=== PATIENT | male | born 1980 | race African-American/Black ===

== ENCOUNTER 2021-05-11 04:58 | Emergency (ER) | payer OTHER, SELFPAY ==
[2021-05-12] MEDS ORDERED: THIA100TA PO (13:37)
[2021-05-12] MEDS ORDERED: ASPI-551 PO (13:37)
[2021-05-12] MEDS ORDERED: FOLI1TAB11 PO (13:37)
[2021-05-12] MEDS ORDERED: PERCOCET PO (13:51)
== END 2021-05-11 05:13 | disposition left against medical advice (07) ==
LOC: M ED 04:58
DX: Z53.29 Procedure and treatment not carried out because of patient's decision for other reasons (principal)

== ENCOUNTER 2021-05-11 06:14 | Inpatient (IN) | payer MEDICAID, OTHER ==
[~2021-05-11] VITALS: Ht 175.3 cm; Wt 119.1 kg
[2021-05-11 07:38] LABS: AMPHETAMINES LEVEL URINE NEGATIVE (NEGATIVE); BARBITURATES URINE NEGATIVE (NEGATIVE); BENZODIAZEPINES URINE NEGATIVE (NEGATIVE); CANNABINOIDS URINE POSITIVE (NEGATIVE); COCAINE METABOLITE URINE POSITIVE (NEGATIVE); METHADONE URINE NEGATIVE (NEGATIVE); OPIATES URINE NEGATIVE (NEGATIVE); PHENCYCLIDINE URINE NEGATIVE (NEGATIVE)
[2021-05-11 07:39] LABS: RSV AMPLIFICATION NEGATIVE (NEGATIVE)
[2021-05-11 11:05] LABS: HEMATOCRIT 41.5 % (42.0-52.0); HEMOGLOBIN 13.6 g/dl (13.5-17.5); MEAN CORPUSCULAR HEMOGLOBIN 27.8 pg (27.0-33.0); MEAN CORPUSCULAR HGB CONC 32.8 g/dl (32.0-36.5); MEAN CORPUSCULAR VOLUME 84.7 fl (80.0-96.0); PLATELET COUNT, AUTOMATED 289 10^3/uL (150-450); WHITE BLOOD COUNT 17.3 10^3/uL (4.0-10.0)
[2021-05-11 11:35] LABS: ACETAMINOPHEN LEVEL < 2.0 UG/ML (10.0-30.0); ALBUMIN 3.9 GM/DL (3.2-5.2); ALT/SGPT 22 U/L (12-78); BILIRUBIN,DIRECT 0.1 MG/DL (0.0-0.2); BILIRUBIN,TOTAL 0.4 MG/DL (0.2-1.0); BLOOD UREA NITROGEN 9 MG/DL (7-18); CALCIUM LEVEL 8.4 MG/DL (8.5-10.1); CARBON DIOXIDE LEVEL 28 MEQ/L (21-32); CHLORIDE LEVEL 114 MEQ/L (98-107); CREATININE FOR GFR 0.86 MG/DL (0.70-1.30); ETHYL ALCOHOL (ETHANOL) 0.162 % (0.000-0.010); GLOMERULAR FILTRATION RATE > 60.0 (>60); GLUCOSE, FASTING 88 MG/DL (70-100); POTASSIUM SERUM 3.8 MEQ/L (3.5-5.1); SALICYLATE LEVEL 3.4 MG/DL (5.0-30.0); SODIUM LEVEL 145 MEQ/L (136-145); THYROID STIMULATING HORMONE 0.396 uIU/ML (0.358-3.740); TOTAL PROTEIN 7.4 GM/DL (6.4-8.2)
[2021-05-11] MEDS ORDERED: MORPHINE 10 MG/ML 1ML VIAL (J2270) IM ONE (15:10)
[2021-05-11] MEDS ORDERED: MORPHINE 4 MG/ML 1ML VIAL/SYRINGE (J2270) IM ONE (15:10)
[2021-05-11] MEDS ORDERED: HOME MED LIST COMPLETE! XX SCH (16:20)
[2021-05-11] MEDS ORDERED: LORazepam 2 MG TAB PO PRN (16:35)
[2021-05-11] MEDS ORDERED: MORPHINE 2 MG/ML 1ML VIAL (J2270) IV PRN ×2 (16:35)
[2021-05-11] MEDS ORDERED: oxyCODONE 5MG TAB PO ONE (16:50)
[2021-05-11 21:30] VITALS: BP 139/87
[2021-05-11] MEDS: THIAMINE 100 MG TAB PO SCH (21:37)
[2021-05-11] MEDS: MORPHINE 4 MG/ML 1ML VIAL/SYRINGE (J2270) IV PRN (21:38)
[2021-05-11 22:02] VITALS: BP 134/85
[2021-05-11] MEDS ORDERED: ONDANSETRON 4MG/2ML VIAL IV PRN (23:10)
[2021-05-12] MEDS: MORPHINE 4 MG/ML 1ML VIAL/SYRINGE (J2270) IV PRN ×2 (01:46→11:35)
[2021-05-12 06:00] VITALS: BP 134/89
[2021-05-12] MEDS ORDERED: METOCLOPRAMIDE INJ 10MG/2ML VIAL (J2765 PER 1) As Ordered ONE (07:50)
[2021-05-12] MEDS ORDERED: LIDOCAINE 2% 100MG/5ML SDV (FOR ANES.) As Ordered ONE (07:50)
[2021-05-12] MEDS ORDERED: ACETAMINOPHEN 1000MG 100ML IV BTL (OFIRMEV) (J0131 PER 10MG) As Ordered ONE (07:50)
[2021-05-12] MEDS ORDERED: fentaNYL 100 MCG/2 ML INJECTION As Ordered ONE ×2 (07:50→10:49)
[2021-05-12] MEDS ORDERED: MIDAZOLAM INJ 2MG/2ML VIAL (J2250 PER 1MG) As Ordered ONE (07:50)
[2021-05-12] MEDS ORDERED: ONDANSETRON 4MG/2ML VIAL As Ordered ONE (07:50)
[2021-05-12] MEDS ORDERED: propofoL 200 MG/20 ML VIAL As Ordered ONE (07:50)
[2021-05-12] MEDS ORDERED: KETOROLAC 60MG 2ML VIAL As Ordered ONE (07:50)
[2021-05-12] MEDS ORDERED: BUPIVACAINE HCL 0.25% 30ML VIAL As Ordered ONE (08:17)
[2021-05-12 08:24] LABS: ALBUMIN 3.8 GM/DL (3.2-5.2); ALT/SGPT 22 U/L (12-78); BILIRUBIN,TOTAL 2.1 MG/DL (0.2-1.0); BLOOD UREA NITROGEN 9 MG/DL (7-18); CARBON DIOXIDE LEVEL 28 MEQ/L (21-32); CHLORIDE LEVEL 106 MEQ/L (98-107); CREATININE FOR GFR 0.82 MG/DL (0.70-1.30); GLOMERULAR FILTRATION RATE > 60.0 (>60); GLUCOSE, FASTING 103 MG/DL (70-100); MAGNESIUM LEVEL 2.1 MG/DL (1.8-2.4); PHOSPHORUS LEVEL 2.8 MG/DL (2.5-4.9); POTASSIUM SERUM 3.8 MEQ/L (3.5-5.1); SODIUM LEVEL 140 MEQ/L (136-145); TOTAL PROTEIN 7.1 GM/DL (6.4-8.2)
[2021-05-12] MEDS ORDERED: ceFAZolin 2 GM/D5W 50 ML IV BAG (J0690 PER 500MG) As Ordered ONE (08:27)
[2021-05-12] MEDS ORDERED: propofoL 500 MG/50 ML VIAL As Ordered ONE (08:34)
[2021-05-12] MEDS: THIAMINE 100 MG TAB PO SCH (09:00)
[2021-05-12] MEDS ORDERED: FOLIC ACID 1 MG TAB PO SCH (09:00)
[2021-05-12] MEDS ORDERED: MULTIVITAMINS/MINERALS THERAP 1 TAB PO SCH (09:00)
[2021-05-12] MEDS ORDERED: HYDROmorphone HCL 2MG/ML 1ML VIAL As Ordered ONE (09:26)
[2021-05-12] MEDS: fentaNYL 100 MCG/2 ML INJECTION IV PRN ×4 (10:52→11:10)
[2021-05-12] MEDS ORDERED: LR 1,000 ML IV SCH (11:00)
[2021-05-12] MEDS ORDERED: PERCOCET 5MG/325MG TAB PO PRN (11:00)
[2021-05-12] MEDS ORDERED: ONDANSETRON 4MG/2ML VIAL IV PRN (11:00)
[2021-05-12 11:30] VITALS: BP 131/92
[2021-05-12 12:00] VITALS: BP 136/92
[2021-05-12 12:30] VITALS: BP 154/93
[2021-05-12 12:33] LABS: ALBUMIN 3.7 GM/DL (3.2-5.2); ALT/SGPT 28 U/L (12-78); BILIRUBIN,TOTAL 1.5 MG/DL (0.2-1.0); BLOOD UREA NITROGEN 11 MG/DL (7-18); CALCIUM LEVEL 8.8 MG/DL (8.5-10.1); CARBON DIOXIDE LEVEL 29 MEQ/L (21-32); CHLORIDE LEVEL 106 MEQ/L (98-107); CREATININE FOR GFR 1.02 MG/DL (0.70-1.30); GLOMERULAR FILTRATION RATE > 60.0 (>60); GLUCOSE, FASTING 124 MG/DL (70-100); POTASSIUM SERUM 3.9 MEQ/L (3.5-5.1); SODIUM LEVEL 138 MEQ/L (136-145); TOTAL PROTEIN 7.2 GM/DL (6.4-8.2)
[2021-05-12 13:30] VITALS: BP 149/90
[2021-05-12] MEDS ORDERED: ASPI-551 PO (13:37)
[2021-05-12] MEDS ORDERED: FOLI1TAB11 PO (13:37)
[2021-05-12] MEDS ORDERED: THIA100TA PO (13:37)
[2021-05-12 13:40] LABS: HEMATOCRIT 39.4 % (42.0-52.0); HEMOGLOBIN 12.8 g/dl (13.5-17.5); MEAN CORPUSCULAR HEMOGLOBIN 27.7 pg (27.0-33.0); MEAN CORPUSCULAR HGB CONC 32.5 g/dl (32.0-36.5); MEAN CORPUSCULAR VOLUME 85.3 fl (80.0-96.0); PLATELET COUNT, AUTOMATED 246 10^3/uL (150-450); RED BLOOD COUNT 4.62 10^6/uL (4.30-6.10)
[2021-05-12] MEDS ORDERED: PERCOCET PO (13:51)
[2021-05-12] MEDS ORDERED: KETOROLAC TROMETHAMINE 10 MG TAB PO ONE (14:30)
[2021-05-13] MEDS ORDERED: ASPIRIN 81MG ENTERIC TABLET PO SCH (09:00)
== END 2021-05-12 14:30 | disposition home or self-care (01) | DRG 313 ==
LOC: M ED 06:14 → M ED INP 16:23 → ENRESERV 18:23 → M MS5PR 20:50
PROVIDERS: ADMIT Internal Medicine; ATTEND Internal Medicine
PROC: 0QSJ04Z Reposition Right Fibula with Internal Fixation Device, Open Approach (ICD-10-PCS; principal; 2021-05-12 08:00)
DX: S82.841A Displaced bimalleolar fracture of right lower leg, initial encounter for closed fracture (principal); D72.829 Elevated white blood cell count, unspecified; F10.10 Alcohol abuse, uncomplicated; F19.90 Other psychoactive substance use, unspecified, uncomplicated; X58.XXXA Exposure to other specified factors, initial encounter; Y92.9 Unspecified place or not applicable; Z20.822 Contact with and (suspected) exposure to COVID-19; M25.512 Pain in left shoulder

== ENCOUNTER 2021-05-11 06:16 | Emergency (ER) | END 2021-05-11 06:44 | disposition left against medical advice (07) | LOC: M ED 06:16 | DX: Z53.21 Procedure and treatment not carried out due to patient leaving prior to being seen by health care provider (principal) ==

== ENCOUNTER 2021-05-14 18:41 | Emergency (ER) | payer OTHER ==
[~2021-05-14] VITALS: Ht 175.3 cm; Wt 106.8 kg
[~2021-05-14 18:41] MED LIST: ASPI-551 PO; FOLI1TAB11 PO; PERCOCET PO; THIA100TA PO
[2021-05-14] MEDS ORDERED: PERCOCET 5MG/325MG TAB PO ONE (23:45)
[2021-05-15] MEDS ORDERED: PERC5TAB12 PO (00:31)
[2021-05-15 00:32] VITALS: BP 141/86
[2021-05-15] MEDS ORDERED: OXYCODONE/APAP 5MG/325MG(BULK FOR ED) 1 TABLET PO ONE (00:35)
== END 2021-05-15 00:48 | disposition home or self-care (01) ==
LOC: M ED 18:41
DX: M79.604 Pain in right leg (principal); G89.18 Other acute postprocedural pain; Z79.899 Other long term (current) drug therapy; Z79.82 Long term (current) use of aspirin; F17.210 Nicotine dependence, cigarettes, uncomplicated

== ENCOUNTER → 2021-05-23 | Outpatient (CLI) | payer OTHER ==
[~2021-05-23] MED LIST changes: +PERC5TAB12 PO
== END ==
LOC: M SOG 08:34
PROVIDERS: ATTEND Orthopaedic Surgery
DX: S82.841D Displaced bimalleolar fracture of right lower leg, subsequent encounter for closed fracture with routine healing (principal); W18.30XD Fall on same level, unspecified, subsequent encounter

== ENCOUNTER → 2021-06-06 | Outpatient (CLI) | payer OTHER | LOC: M SOG 15:33 | PROVIDERS: ATTEND Orthopaedic Surgery | DX: S82.841D Displaced bimalleolar fracture of right lower leg, subsequent encounter for closed fracture with routine healing (principal); W18.30XD Fall on same level, unspecified, subsequent encounter ==

== ENCOUNTER → 2021-06-27 | Outpatient (CLI) | payer OTHER | LOC: M SOG 08:06 | PROVIDERS: ATTEND Orthopaedic Surgery | DX: S82.841D Displaced bimalleolar fracture of right lower leg, subsequent encounter for closed fracture with routine healing (principal) ==

== ENCOUNTER 2022-04-30 12:17 | Emergency (ER) | payer OTHER ==
[~2022-04-30] VITALS: Ht 175.3 cm; Wt 118.9 kg
[2022-04-30 14:31] LABS: BASO # 0.1 10^3/uL (0.0-0.2); BASO % 0.5 % (0.0-1.0); EOS # 0.2 10^3/uL (0.0-0.5); EOS % 1.5 % (0.0-3.0); HEMOGLOBIN 13.3 g/dl (13.5-17.5); LYMPH # 3.7 10^3/uL (1.5-5.0); LYMPH % 28.2 % (24.0-44.0); MEAN CORPUSCULAR HEMOGLOBIN 28.3 pg (27.0-33.0); MEAN CORPUSCULAR HGB CONC 32.4 g/dl (32.0-36.5); MEAN CORPUSCULAR VOLUME 87.2 fl (80.0-96.0); MONO # 0.9 10^3/uL (0.0-0.8); MONO % 6.9 % (2.0-8.0); NEUTROPHILS # 8.1 10^3/uL (1.5-8.5); NEUTROPHILS % 62.7 % (36.0-66.0); PLATELET COUNT, AUTOMATED 266 10^3/uL (150-450)
[2022-04-30] MEDS ORDERED: GI COCKTAIL 50ML BTL(HYOSCYAMINE/MAALOX/LIDOCAINE VISCOUS)(1:3:1) PO ONE (14:55)
[2022-04-30 14:59] LABS: BLOOD UREA NITROGEN 12 MG/DL (9-23); CARBON DIOXIDE LEVEL 29 MMOL/L (20-31); CHLORIDE LEVEL 107 MMOL/L (98-107); CREATININE FOR GFR 0.78 MG/DL (0.70-1.30); GLOMERULAR FILTRATION RATE > 60.0 (>60); GLUCOSE, FASTING 92 MG/DL (60-100); POTASSIUM SERUM 3.9 MMOL/L (3.5-5.1); SODIUM LEVEL 141 MMOL/L (136-145)
[2022-04-30 15:18] LABS: CK-MB VALUE MASS < 1.0 NG/ML (<3.6)
[2022-04-30 15:19] LABS: CPK CREATINE PHOSPHOKINASE 156 U/L (46-171); MB/CK RELATIVE INDEX 0.64 (< OR =4)
[2022-04-30] MEDS ORDERED: FAMO20TA PO (15:55)
[2022-04-30 16:05] VITALS: BP 164/80
== END 2022-04-30 16:07 | disposition home or self-care (01) ==
LOC: M ED 12:17
DX: R07.89 Other chest pain (principal); K21.9 Gastro-esophageal reflux disease without esophagitis

== ENCOUNTER 2022-05-12 10:33 | Emergency (ER) | payer OTHER, SELFPAY ==
[~2022-05-12] VITALS: Ht 175.3 cm; Wt 109.1 kg
[~2022-05-12 10:33] MED LIST changes: +FAMO20TA PO
[2022-05-12] MEDS ORDERED: NS 1,000 ML IV ONE (11:15)
[2022-05-12 12:12] LABS: BASO # 0.1 10^3/uL (0.0-0.2); BASO % 0.2 % (0.0-1.0); EOS # 0.1 10^3/uL (0.0-0.5); EOS % 0.4 % (0.0-3.0); HEMATOCRIT 42.8 % (42.0-52.0); HEMOGLOBIN 13.7 g/dl (13.5-17.5); LYMPH # 2.3 10^3/uL (1.5-5.0); LYMPH % 11.5 % (24.0-44.0); MEAN CORPUSCULAR VOLUME 87.3 fl (80.0-96.0); MONO # 1.5 10^3/uL (0.0-0.8); MONO % 7.4 % (2.0-8.0); NEUTROPHILS # 16.1 10^3/uL (1.5-8.5); NEUTROPHILS % 79.9 % (36.0-66.0); PLATELET COUNT, AUTOMATED 303 10^3/uL (150-450); WHITE BLOOD COUNT 20.2 10^3/uL (4.0-10.0)
[2022-05-12] MEDS ORDERED: ISOVUE-370 76% 100ML VIAL As Ordered ONE (12:24)
[2022-05-12 13:22] VITALS: BP 126/62
[2022-05-12] MEDS ORDERED: PIPERACILLIN/TAZOBACTAM SOD 4.5 GM in D5W MINI-BAG PLUS 50 ML IV ONE (13:35)
[2022-05-12] MEDS ORDERED: KETOROLAC 30 MG/ML 1ML VIAL IV ONE (13:35)
[2022-05-12] MEDS ORDERED: LIDOCAINE 1% MDV 20ML VIAL SC ONE (13:45)
[2022-05-12 14:05] LABS: ERYTHROCYTE SEDIMENTATION RATE 52 mm/hr (0-15)
[2022-05-12] MEDS ORDERED: AMOX875T2 PO (14:55)
== END 2022-05-12 15:13 | disposition home or self-care (01) ==
LOC: M ED 10:33
DX: L02.215 Cutaneous abscess of perineum (principal); Z79.82 Long term (current) use of aspirin; Z79.899 Other long term (current) drug therapy
CPT/HCPCS: 72193; 80047; 83605; 85025; 85652; 86140; 87040; 87070; 87186; 87205; 96365; 99284; J1885; J2543; Q9967

== ENCOUNTER 2023-01-04 08:50 | Emergency (ER) | payer SELFPAY ==
[~2023-01-04] VITALS: Ht 177.8 cm; Wt 114.0 kg
[~2023-01-04 08:50] MED LIST changes: +AMOX875T2 PO
[2023-01-04] MEDS ORDERED: LIDOCAINE W/EPINEPHRINE 1% 20ML VIAL SC ONE (10:35)
[2023-01-04 11:15] LABS: BASO # 0.1 10^3/uL (0.0-0.2); BASO % 0.3 % (0.0-1.0); EOS # 0.1 10^3/uL (0.0-0.5); EOS % 0.6 % (0.0-3.0); HEMATOCRIT 40.6 % (42.0-52.0); HEMOGLOBIN 13.2 g/dl (13.5-17.5); LYMPH # 2.1 10^3/uL (1.5-5.0); LYMPH % 10.6 % (24.0-44.0); MEAN CORPUSCULAR HEMOGLOBIN 28.7 pg (27.0-33.0); MEAN CORPUSCULAR HGB CONC 32.5 g/dl (32.0-36.5); MEAN CORPUSCULAR VOLUME 88.3 fl (80.0-96.0); MONO # 1.5 10^3/uL (0.0-0.8); MONO % 7.5 % (2.0-8.0); NEUTROPHILS % 80.6 % (36.0-66.0); PLATELET COUNT, AUTOMATED 283 10^3/uL (150-450); WHITE BLOOD COUNT 19.9 10^3/uL (4.0-10.0)
[2023-01-04 11:38] LABS: BLOOD UREA NITROGEN 7 MG/DL (9-23); CALCIUM LEVEL 8.5 MG/DL (8.5-10.1); CARBON DIOXIDE LEVEL 26 MMOL/L (20-31); CHLORIDE LEVEL 108 MMOL/L (98-107); CREATININE FOR GFR 0.68 MG/DL (0.70-1.30); GLOMERULAR FILTRATION RATE > 60.0 (>60); GLUCOSE, FASTING 111 MG/DL (60-100); POTASSIUM SERUM 4.2 MMOL/L (3.5-5.1); SODIUM LEVEL 140 MMOL/L (136-145)
[2023-01-04] MEDS ORDERED: NS 1,000 ML IV ONE (11:50)
[2023-01-04] MEDS ORDERED: PIPERACILLIN/TAZOBACTAM SOD 3.375 GM in D5W MINI-BAG PLUS 50 ML IV ONE (11:50)
[2023-01-04] MEDS ORDERED: ISOVUE-370 76% 100ML VIAL As Ordered ONE (11:53)
[2023-01-04 13:24] VITALS: BP 139/72; TEMP 97.9; O2SAT 100
[2023-01-04] MEDS ORDERED: DOXY-443 PO (13:42)
== END 2023-01-04 14:05 | disposition home or self-care (01) ==
LOC: M ED 08:50
DX: K61.0 Anal abscess (principal)
CPT/HCPCS: 10060; 72193; 80048; 83605; 85025; 96361; 96365; 96372; 99283; J2543; Q9967